=== PATIENT | female | born 1955 | race Caucasian/White ===

== ENCOUNTER 2023-09-29 15:07 | Day surgery (SDC) | payer MEDICARE, OTHER ==
[2023-09-29] MEDS ORDERED: XYLOCAINE-MPF 1% 5ML SDV IJ ONE (15:08)
[2023-09-29] MEDS ORDERED: Sodium Chloride 0.9(Preservative Free) 10 ML IJ ONE (15:08)
[2023-09-29] MEDS ORDERED: Decadron 4 MG INJ IV ONE (15:08)
[2023-09-29] MEDS ORDERED: Lactated Ringers 1,000 ML IV ONE (17:04)
--- NOTE | 2023-09-29 20:50 | XRAY ---
Indication: Cervical JULIENNE. Intraoperative fluoroscopy provided for 23 seconds. 4 digital spot image submitted for interpretation demonstrates posterior needle tip projecting posterior to cervical thoracic junction with small amount of contrast injected for needle tip placement. Correlate with intraoperative findings/report. Incidental C5-C6 fusion hardware.
--- NOTE | 2023-09-29 21:46 | XRAY ---
23 seconds of fluoroscopy was used in surgery for a cervical JULIENNE.
== END 2023-09-29 17:37 | disposition home or self-care (01) ==
LOC: SDC-PAIN 15:07
PROVIDERS: ATTEND Psychiatry & Neurology Pain Medicine
DX: M54.12 Radiculopathy, cervical region (principal)
CPT/HCPCS: 62321; 72040; 77003; J1100; Q9966